=== PATIENT | male | born 1975 | race Caucasian/White ===

== ENCOUNTER 2017-01-21 18:25 | Emergency (ER) | payer SELFPAY ==
[~2017-01-21] VITALS: Ht 170.1 cm; Wt 97.5 kg
[2017-01-21] MEDS ORDERED: METOPROLOL SUCC25 M2 PO (18:37)
[2017-01-21 19:17] LABS: BASO % 0.2 % (0.0-1.0); EOS # 0.1 10*3/uL (0.0-0.4); EOS % 0.5 % (1.0-4.0); HEMATOCRIT 46.5 % (42.0-52.0); HEMOGLOBIN 16.9 g/dl (14.0-18.0); IG # 0.1 10*3/uL (0.0-0.1); LYMPH # 0.7 10*3/uL (1.3-4.4); LYMPH % 5.3 % (27.0-41.0); MEAN CELL VOLUME 81.9 fl (80.0-94.0); MEAN CORPUSCULAR HGB 29.8 pg (27.0-31.0); MEAN CORPUSCULAR HGB CONC 36.3 g/dl (33.0-37.0); MEAN PLATELET VOLUME 10.8 fl (9.6-12.3); MONO # 0.9 10*3/uL (0.1-1.0); MONO % 7.2 % (3.0-9.0); NEUT # 11.3 10*3/uL (2.3-7.9); NEUT % 86.3 % (47.0-73.0); PLATELET COUNT AUTOMATED 154 10*3/uL (130-400); RED BLOOD COUNT 5.68 10*6/uL (4.50-5.90); RED CELL DISTRI WIDTH 12.7 % (0-14.5); WHITE BLOOD COUNT 13.1 10*3/uL (4.8-10.8)
[2017-01-21 19:34] LABS: BUN 16 mg/dl (7-24); CARBON DIOXIDE 28 mmol/L (21-32); CHLORIDE 101 mmol/L (98-107); EST GLOM FILT AFRICAN AMERICAN > 60 ml/min; GLUCOSE 96 mg/dL (65-99); POTASSIUM 3.3 mmol/L (3.5-5.1); SODIUM 140 mmol/L (136-145); TROPONIN I 0.033 ng/ml (<0.045)
[2017-01-21 20:00] LABS: BILIRUBIN NEGATIVE (NEGATIVE); BLOOD TRACE-INTACT (NEGATIVE); CLARITY SL CLOUDY (CLEAR); COLOR YELLOW (YELLOW); GLUCOSE TRACE (NEGATIVE); KETONE NEGATIVE (NEGATIVE); LEUKO ESTERASE NEGATIVE (NEGATIVE); NITRITE NEGATIVE (NEGATIVE); PROTEIN 2+ (NEGATIVE); SPECIFIC GRAVITY >= 1.030 (1.005-1.030); UROBILINOGEN 0.2 E.U./dl (0.2-1.0)
[2017-01-21 20:08] LABS: BACTERIA 2+; MUCOUS TRACE; RBC 0-2 rbc/hpf (0-2); URINE REFLEX COMMENT YES (NO)
[2017-01-21 20:11] LABS: URINE AMPHETAMINES > 1000 (1000ng/ml); URINE BARBITURATES < 200 (200ng/ml); URINE COCAINE > 300 (300ng/ml)
== END 2017-01-21 20:22 | disposition home or self-care (01) ==
LOC: ED 18:25
PROVIDERS: Emergency Medicine
DX: T42.4X1A Poisoning by benzodiazepines, accidental (unintentional), initial encounter (principal); Z94.9 Transplanted organ and tissue status, unspecified; Y92.9 Unspecified place or not applicable

== ENCOUNTER 2017-02-11 14:22 | Emergency (ER) | payer SELFPAY ==
[~2017-02-11] VITALS: Ht 170.1 cm; Wt 108.9 kg
[~2017-02-11 14:22] MED LIST: METOPROLOL SUCC25 M2 PO
== END 2017-02-11 16:32 | disposition home or self-care (01) ==
LOC: ED 14:22
DX: S90.32XA Contusion of left foot, initial encounter (principal); F17.200 Nicotine dependence, unspecified, uncomplicated; Z88.6 Allergy status to analgesic agent; W20.8XXA Other cause of strike by thrown, projected or falling object, initial encounter; Y93.89 Activity, other specified; Y92.9 Unspecified place or not applicable; Y99.9 Unspecified external cause status

== ENCOUNTER 2021-08-15 17:24 | Emergency (ER) | payer OTHER | END 2021-08-15 21:00 | disposition home or self-care (01) | LOC: ED 17:24 | DX: S60.511A Abrasion of right hand, initial encounter (principal); F17.200 Nicotine dependence, unspecified, uncomplicated; Z88.6 Allergy status to analgesic agent; W01.0XXA Fall on same level from slipping, tripping and stumbling without subsequent striking against object, initial encounter; Y93.89 Activity, other specified; Y92.89 Other specified places as the place of occurrence of the external cause; Y99.8 Other external cause status ==

== ENCOUNTER 2022-06-16 12:18 | Emergency (ER) | payer SELFPAY ==
[~2022-06-16] VITALS: Wt 92.1 kg
[2022-06-16] MEDS ORDERED: VIBRAMYCIN100 MG PO (13:12)
[2022-06-16] MEDS ORDERED: IBUPROFEN600 MG PO (13:12)
[2022-06-16 14:08] LABS: BASO % 0.2 % (0.0-1.0); EOS # 0.1 10*3/uL (0.0-0.4); EOS % 0.7 % (1.0-4.0); HEMATOCRIT 43.4 % (42.0-52.0); LYMPH # 2.2 10*3/uL (1.3-4.4); LYMPH % 15.2 % (27.0-41.0); MEAN CELL VOLUME 84.8 fl (80.0-94.0); MEAN CORPUSCULAR HGB 30.5 pg (27.0-31.0); MEAN CORPUSCULAR HGB CONC 35.9 g/dl (33.0-37.0); MONO # 1.3 10*3/uL (0.1-1.0); NEUT # 10.5 10*3/uL (2.3-7.9); NEUT % 74.5 % (47.0-73.0); PLATELET COUNT AUTOMATED 268 10*3/uL (130-400); RED BLOOD COUNT 5.12 10*6/uL (4.50-5.90); RED CELL DISTRI WIDTH 12.4 % (0-14.5); WHITE BLOOD COUNT 14.1 10*3/uL (4.8-10.8)
[2022-06-16 14:25] LABS: ALKALINE PHOSPHATASE 106 U/L (45-117); BUN 17 mg/dl (7-24); CHLORIDE 104 mmol/L (98-107); CREATININE 1.05 mg/dL (0.70-1.30); POTASSIUM 3.6 mmol/L (3.5-5.1); SGOT/AST 13 IU/L (3-35); SGPT/ALT 25 U/L (12-78); SODIUM 135 mmol/L (136-145); TOTAL PROTEIN 7.7 gm/dL (6.4-8.2)
== END 2022-06-16 16:56 | disposition left against medical advice (07) ==
LOC: ED 12:18
PROVIDERS: Physician Assistant
DX: A41.9 Sepsis, unspecified organism (principal); L02.413 Cutaneous abscess of right upper limb; R65.20 Severe sepsis without septic shock; Z88.8 Allergy status to other drugs, medicaments and biological substances; Z90.49 Acquired absence of other specified parts of digestive tract

== ENCOUNTER 2023-02-14 19:27 | Emergency (ER) | payer MEDICAID ==
[~2023-02-14] VITALS: Ht 170.1 cm; Wt 90.7 kg
[~2023-02-14 19:27] MED LIST changes: +IBUPROFEN600 MG PO; +VIBRAMYCIN100 MG PO
[2023-02-14 20:25] LABS: BASO % 0.4 % (0.0-1.0); EOS # 0.1 10*3/uL (0.0-0.4); EOS % 1.1 % (1.0-4.0); HEMATOCRIT 45.4 % (42.0-52.0); LYMPH # 0.8 10*3/uL (1.3-4.4); LYMPH % 15.5 % (27.0-41.0); MEAN CELL VOLUME 85.3 fl (80.0-94.0); MEAN CORPUSCULAR HGB 30.1 pg (27.0-31.0); MEAN CORPUSCULAR HGB CONC 35.2 g/dl (33.0-37.0); MEAN PLATELET VOLUME 11.1 fl (9.6-12.3); MONO # 0.3 10*3/uL (0.1-1.0); MONO % 5.3 % (3.0-9.0); NEUT # 4.1 10*3/uL (2.3-7.9); NEUT % 77.5 % (47.0-73.0); PLATELET COUNT AUTOMATED 158 10*3/uL (130-400); RED BLOOD COUNT 5.32 10*6/uL (4.50-5.90); RED CELL DISTRI WIDTH 12.6 % (0-14.5); WHITE BLOOD COUNT 5.2 10*3/uL (4.8-10.8)
[2023-02-14] MEDS ORDERED: 'XANAX1 MG PO (20:38)
[2023-02-14 20:44] LABS: ALKALINE PHOSPHATASE 86 U/L (46-116); BUN 11 mg/dl (9-23); CHLORIDE 101 mmol/L (98-107); CPK 164 U/L (34-171); ETHYL ALCOHOL < 3.0 mg/dl (<3); POTASSIUM 2.9 mmol/L (3.4-5.1); SGPT/ALT 26 U/L (10-49)
[2023-02-14 21:12] LABS: BILIRUBIN Negative (Negative); BLOOD Negative (Negative); CLARITY Clear (Clear); COLOR Yellow (Yellow); GLUCOSE Negative (Negative); KETONE Trace (Negative); LEUKO ESTERASE Negative (Negative); NITRITE Negative (Negative); PH 5.5 (4.5-8.0); UROBILINOGEN 0.2 E.U./dl (0.0-1.0)
[2023-02-14 21:20] LABS: URINE AMPHETAMINES Positive (1000ng/ml); URINE BARBITURATES Negative (200ng/ml); URINE BENZODIAZEPINES Positive (200ng/ml); URINE CANNABINOIDS (THC) Negative (50ng/ml); URINE COCAINE Negative (300ng/ml); URINE METHADONE Negative (300ng/ml); URINE OPIATES Negative (300ng/ml); URINE PHENCYCLIDINE Negative (25ng/ml)
[2023-02-14 21:30] LABS: BACTERIA TRACE; EPITHELIAL CELLS 0-2; MUCOUS TRACE; RBC 0-2 rbc/hpf (0-2); WBC 0-2 wbc/hpf (0-5)
== END 2023-02-14 21:55 | disposition home or self-care (01) ==
LOC: ED 19:27
PROVIDERS: Internal Medicine
DX: R56.9 Unspecified convulsions (principal); E87.6 Hypokalemia; I10 Essential (primary) hypertension; F15.90 Other stimulant use, unspecified, uncomplicated; Z88.5 Allergy status to narcotic agent; Z90.49 Acquired absence of other specified parts of digestive tract; Z98.890 Other specified postprocedural states

== ENCOUNTER 2024-11-03 14:35 | Emergency (ER) | payer MEDICAID ==
[~2024-11-03] VITALS: Ht 177.8 cm; Wt 90.7 kg
[~2024-11-03 14:35] MED LIST changes: +'XANAX1 MG PO
[2024-11-03] MEDS ORDERED: DIAZEPAM 10 MG/2 ML SYR IV ONE (14:40)
[2024-11-03] MEDS ORDERED: SODIUM CHLORIDE 0.9% 1,000 ML IV ONE (14:40)
[2024-11-03] MEDS ORDERED: Labetalol Hydrochloride 20 MG/4 ML SYR IV ONE ×3 (15:15→17:40)
[2024-11-03 15:26] LABS: POTASSIUM 3.2 mmol/L (3.4-5.1); VALPROIC ACID (DEPAKENE) 15.5 ug/ml (50-100)
[2024-11-03] MEDS ORDERED: Ondansetron Hydrochloride 4 MG/2 ML VIAL IV ONE (15:30)
[2024-11-03 15:55] LABS: BASO % 0.2 % (0.0-1.0); EOS # 0.1 10*3/uL (0.0-0.4); EOS % 0.6 % (1.0-4.0); HEMATOCRIT 44.6 % (42.0-52.0); MEAN CELL VOLUME 82.3 fl (80.0-94.0); MEAN CORPUSCULAR HGB 29.7 pg (27.0-31.0); MEAN CORPUSCULAR HGB CONC 36.1 g/dl (33.0-37.0); MONO # 0.6 10*3/uL (0.1-1.0); MONO % 5.4 % (3.0-9.0); NEUT # 9.4 10*3/uL (2.3-7.9); NEUT % 86.2 % (47.0-73.0); PLATELET COUNT AUTOMATED 163 10*3/uL (130-400); RED BLOOD COUNT 5.42 10*6/uL (4.50-5.90); RED CELL DISTRI WIDTH 12.5 % (0-14.5)
[2024-11-03] MEDS ORDERED: DIVALPROEX ER 500 MG TAB PO ONE (16:05)
[2024-11-03] MEDS ORDERED: hydrALAZINE hydrochloride 20 MG/ML VIAL IV ONE (17:40)
[2024-11-03] MEDS ORDERED: LISINOPRIL-HCT1 EACH PO (17:51)
[2024-11-03] MEDS ORDERED: ACETAMINOPHEN 325 MG TAB PO ONE (18:10)
== END 2024-11-03 18:09 | disposition home or self-care (01) ==
LOC: ED 14:35
PROVIDERS: Emergency Medicine
DX: R56.9 Unspecified convulsions (principal); I16.0 Hypertensive urgency; E87.6 Hypokalemia; R51.9 Headache, unspecified; Z88.5 Allergy status to narcotic agent; Z90.49 Acquired absence of other specified parts of digestive tract; Z98.890 Other specified postprocedural states

== ENCOUNTER 2024-12-29 05:41 | Inpatient (IN) | payer SELFPAY ==
[~2024-12-29] VITALS: Ht 170.2 cm; Wt 107.2 kg
[2024-12-29] VITALS (12 sets, daily range): BP systolic 146–214; BP diastolic 71–138
[~2024-12-29 05:41] MED LIST changes: +LISINOPRIL-HCT1 EACH PO
[2024-12-29] MEDS ORDERED: DIVALPROEX SOD250 MG PO (05:48)
[2024-12-29] MEDS ORDERED: TEMAZEPAM30 MG PO (05:48)
[2024-12-29] MEDS ORDERED: SERTRALINE HYDR50 MG PO (05:48)
[2024-12-29 06:10] LABS: BASO % 0.2 % (0.0-1.0); EOS # 0.2 10*3/uL (0.0-0.4); EOS % 3.3 % (1.0-4.0); HEMATOCRIT 41.3 % (42.0-52.0); MEAN CELL VOLUME 82.1 fl (80.0-94.0); MEAN CORPUSCULAR HGB 29.6 pg (27.0-31.0); MEAN CORPUSCULAR HGB CONC 36.1 g/dl (33.0-37.0); MEAN PLATELET VOLUME 10.2 fl (9.6-12.3); MONO # 0.5 10*3/uL (0.1-1.0); MONO % 7.6 % (3.0-9.0); NEUT # 3.9 10*3/uL (2.3-7.9); NEUT % 59.8 % (47.0-73.0); PLATELET COUNT AUTOMATED 179 10*3/uL (130-400); RED BLOOD COUNT 5.03 10*6/uL (4.50-5.90); RED CELL DISTRI WIDTH 11.8 % (0-14.5); WHITE BLOOD COUNT 6.4 10*3/uL (4.8-10.8)
[2024-12-29 07:04] LABS: BUN 21 mg/dl (9-23); CHLORIDE 101 mmol/L (98-107); POTASSIUM 3.7 mmol/L (3.4-5.1)
[2024-12-29 07:05] LABS: ETHYL ALCOHOL < 3.0 mg/dl (<3)
[2024-12-29] MEDS ORDERED: XANAX1 MG PO (07:07)
[2024-12-29] MEDS ORDERED: DIVALPROEX (DR) 500 MG TAB PO ONE (07:10)
[2024-12-29] MEDS ORDERED: hydrALAZINE hydrochloride 20 MG/ML VIAL IV ONE (07:15)
[2024-12-29] MEDS ORDERED: Ondansetron Hydrochloride 4 MG/2 ML VIAL IV ONE (07:45)
[2024-12-29] MEDS ORDERED: MAGNESIUM OXIDE 400 MG TAB PO ONE (08:15)
[2024-12-29] MEDS ORDERED: Promethazine Hydrochloride 25 MG/ML VIAL IV ONE (09:35)
[2024-12-29] MEDS ORDERED: diazePAM 10 MG/2 ML SYR IV ONE (09:35)
[2024-12-29] MEDS ORDERED: BISACODYL 5 MG TAB PO PRN (09:45)
[2024-12-29] MEDS ORDERED: ACETAMINOPHEN 325 MG TAB PO PRN (09:45)
[2024-12-29] MEDS ORDERED: Ondansetron Hydrochloride 4 MG/2 ML VIAL IV PRN (09:45)
[2024-12-29] MEDS ORDERED: Enoxaparin Sodium 40 MG/0.4 ML SYR SC SCH (10:00)
[2024-12-29 10:03] LABS: BILIRUBIN Negative (Negative); BLOOD Negative (Negative); CLARITY Clear (Clear); COLOR Yellow (Yellow); GLUCOSE Negative (Negative); KETONE Negative (Negative); LEUKO ESTERASE Negative (Negative); NITRITE Negative (Negative); UROBILINOGEN 0.2 E.U./dl (0.0-1.0)
[2024-12-29 10:12] LABS: WBC 0-2 wbc/hpf (0-5)
[2024-12-29 10:15] LABS: URINE AMPHETAMINES Negative (1000ng/ml); URINE BARBITURATES Negative (200ng/ml); URINE BENZODIAZEPINES Negative (200ng/ml); URINE CANNABINOIDS (THC) Positive (50ng/ml); URINE COCAINE Negative (300ng/ml); URINE METHADONE Negative (300ng/ml); URINE OPIATES Negative (300ng/ml); URINE PHENCYCLIDINE Negative (25ng/ml)
[2024-12-29] MEDS ORDERED: diazePAM 10 MG/2 ML SYR IV PRN (11:40)
[2024-12-29] MEDS ORDERED: Acetaminophen/Hydrocodone 5 MG/325 MG TABLET PO PRN (11:45)
[2024-12-29] MEDS ORDERED: Labetalol Hydrochloride 20 MG/4 ML SYR IV ONE ×2 (12:00→13:15)
[2024-12-30] VITALS (7 sets, daily range): BP systolic 152–178; BP diastolic 96–124
[2024-12-30 06:03] LABS: BASO % 0.3 % (0.0-1.0); EOS # 0.1 10*3/uL (0.0-0.4); EOS % 1.7 % (1.0-4.0); HEMATOCRIT 42.8 % (42.0-52.0); MEAN CELL VOLUME 83.4 fl (80.0-94.0); MEAN CORPUSCULAR HGB 29.4 pg (27.0-31.0); MEAN CORPUSCULAR HGB CONC 35.3 g/dl (33.0-37.0); MEAN PLATELET VOLUME 10.5 fl (9.6-12.3); MONO # 0.5 10*3/uL (0.1-1.0); MONO % 6.6 % (3.0-9.0); NEUT # 5.4 10*3/uL (2.3-7.9); NEUT % 69.1 % (47.0-73.0); PLATELET COUNT AUTOMATED 163 10*3/uL (130-400); RED BLOOD COUNT 5.13 10*6/uL (4.50-5.90); RED CELL DISTRI WIDTH 12.2 % (0-14.5); WHITE BLOOD COUNT 7.7 10*3/uL (4.8-10.8)
[2024-12-30 06:19] LABS: FREE T4 1.44 ng/dl (0.89-1.76); POTASSIUM 4.1 mmol/L (3.4-5.1); TOTAL PROTEIN 7.6 gm/dL (6.0-8.0)
[2024-12-30 07:59] LABS: VITAMIN D, 25-HYDROXY 34.8 ng/mL (30-100)
[2024-12-30] MEDS ORDERED: amLODIPine besylate 5 MG TAB PO SCH (08:05)
[2024-12-30] MEDS ORDERED: cloNIDine Hydrochloride 0.1 MG TAB PO PRN (08:05)
[2024-12-30] MEDS ORDERED: ALPRAZolam 0.5 MG TAB PO SCH ×2 (10:00→14:00)
[2024-12-30] MEDS ORDERED: amLODIPine besylate 5 MG TAB PO ONE (10:00)
[2024-12-30] MEDS ORDERED: DIVALPROEX ER 250 MG TAB PO SCH (10:00)
[2024-12-30] MEDS ORDERED: Nicotine 21 MG PATCH T SCH (10:00)
[2024-12-30] MEDS ORDERED: Sertraline Hydrochloride 50 MG TAB PO SCH (10:00)
[2024-12-30] MEDS ORDERED: ALPRAZolam 0.5 MG TAB PO PRN (11:15)
[2024-12-30] MEDS ORDERED: TEMAZEPAM 15 MG CAP PO SCH (22:00)
[2024-12-31] MEDS ORDERED: amLODIPine besylate 10 MG TAB PO SCH (10:00)
== END 2024-12-30 22:59 | disposition left against medical advice (07) | DRG 101 ==
LOC: ED 05:41 → EDHOLD 09:14 → 4E 09:50
PROVIDERS: Internal Medicine; Registered Nurse; ADMIT Student in an Organized Health Care Education/Training Program; ATTEND Student in an Organized Health Care Education/Training Program
DX: G40.909 Epilepsy, unspecified, not intractable, without status epilepticus (principal); N17.9 Acute kidney failure, unspecified; I16.0 Hypertensive urgency; I10 Essential (primary) hypertension; F17.210 Nicotine dependence, cigarettes, uncomplicated; Z53.29 Procedure and treatment not carried out because of patient's decision for other reasons; F12.90 Cannabis use, unspecified, uncomplicated; Z91.199 Patient's noncompliance with other medical treatment and regimen due to unspecified reason; Z90.49 Acquired absence of other specified parts of digestive tract; Z88.8 Allergy status to other drugs, medicaments and biological substances; Z79.899 Other long term (current) drug therapy

== ENCOUNTER 2025-08-26 17:57 | Emergency (ER) | payer OTHER ==
[~2025-08-26] VITALS: Ht 170.1 cm; Wt 97.5 kg
[~2025-08-26 17:57] MED LIST changes: +'CLONIDINE0.1 MG PO; +DIVALPROEX SOD250 MG PO; +LEVETIRACETAM500 MG PO; +SERTRALINE HYDR50 MG PO; +TEMAZEPAM30 MG PO; +XANAX1 MG PO
[2025-08-26] MEDS ORDERED: SODIUM CHLORIDE 0.9% 1,000 ML IV ONE (19:00)
[2025-08-26] MEDS ORDERED: LORazepam 2 MG/ML VIAL IV ONE (19:00)
[2025-08-26 19:10] LABS: BASO # 0.0 10*3/uL (0.0-0.1); BASO % 0.4 % (0.0-1.0); EOS # 0.2 10*3/uL (0.0-0.4); EOS % 4.6 % (1.0-4.0); MEAN CELL VOLUME 85.7 fl (80.0-94.0); MEAN CORPUSCULAR HGB 30.6 pg (27.0-31.0); MEAN PLATELET VOLUME 12.5 fl (9.6-12.3); MONO # 0.4 10*3/uL (0.1-1.0); MONO % 8.5 % (3.0-9.0); NEUT # 2.6 10*3/uL (2.3-7.9); NEUT % 51.1 % (47.0-73.0); NUCLEATED RED BLOOD CELL 0.0 % (0.0-0.0); NUCLEATED RED BLOOD CELL 0.0 10*3/uL (0.0-0.0); PLATELET COUNT AUTOMATED 252 10*3/uL (130-400); RED CELL DISTRI WIDTH 12.1 % (0-14.5)
[2025-08-26 19:36] LABS: BILIRUBIN Negative (Negative); BLOOD Negative (Negative); CLARITY Clear (Clear); COLOR Yellow (Yellow); KETONE Negative (Negative); LEUKO ESTERASE Negative (Negative); NITRITE Negative (Negative); PH 7.5 (4.5-8.0); SPECIFIC GRAVITY 1.015 (1.001-1.030); UROBILINOGEN 1.0 E.U./dl (0.0-1.0)
[2025-08-26 19:42] LABS: URINE AMPHETAMINES Negative (1000ng/ml); URINE BARBITURATES Negative (200ng/ml); URINE BENZODIAZEPINES Positive (200ng/ml); URINE CANNABINOIDS (THC) Positive (50ng/ml); URINE COCAINE Negative (300ng/ml); URINE METHADONE Negative (300ng/ml); URINE OPIATES Positive (300ng/ml); URINE PHENCYCLIDINE Negative (25ng/ml)
[2025-08-26 19:53] LABS: WBC 0-2 wbc/hpf (0-5)
[2025-08-26 20:14] LABS: BUN 27.0 mg/dl (9-23); SGPT/ALT 95.0 U/L (5-49)
[2025-08-26] MEDS ORDERED: LEVETIRACETAM IN NACL (ISO-OS) 100 ML IV ONE (21:05)
== END 2025-08-26 22:19 | disposition home or self-care (01) ==
LOC: ED 17:57
DX: F41.9 Anxiety disorder, unspecified (principal); M79.18 Myalgia, other site; G40.909 Epilepsy, unspecified, not intractable, without status epilepticus; I10 Essential (primary) hypertension; F12.90 Cannabis use, unspecified, uncomplicated; Z90.49 Acquired absence of other specified parts of digestive tract; Z88.5 Allergy status to narcotic agent